=== PATIENT | female | born 1960 | race Two or more races ===

== ENCOUNTER 2016-11-28 10:36 | Emergency (ER) | payer MEDICAID ==
[~2016-11-28] VITALS: Ht 154.9 cm; Wt 77.1 kg
[2016-11-28 12:01] LABS: Basophils # (auto) 0 uL; Basophils % (auto) 0.5 % (0.0-2.0); Eosinophils # (auto) 0.1 uL; Eosinophils % (auto) 0.7 % (0.0-7.0); Hematocrit 42.5 % (36.0-46.0); Lymphocytes # (auto) 2.1 uL; Lymphocytes % (auto) 24.8 % (10.0-50.0); Mean Corpuscular Hgb Conc. 32.9 g/dL (32.0-36.0); Mean Platelet Volume 8.3 fL (7.4-10.4); Monocytes # (auto) 0.5 uL; Monocytes % (auto) 6.1 % (0.0-12.0); Neutrophils # (auto) 5.7 uL; Neutrophils % (auto) 67.9 % (37.0-80.0); Platelet Count (auto) 341 10^3/uL (140-450); Red Cell Distribution Width 12.9 % (11.6-16.0); White Blood Cell 8.4 10^3/uL (4.4-10.8)
[2016-11-28 12:24] LABS: Urine Bilirubin Negative (Negative); Urine Blood TRACE /uL (Negative); Urine Color Yellow (Yellow); Urine Glucose Normal (Normal); Urine Ketone Negative (Negative); Urine Mucus FEW (None Seen); Urine Nitrite POSITIVE (Negative); Urine RBC 2 /hpf (0 - 4); Urine Squamous Epithelial Cell FEW /hpf (<5); Urine Urobilinogen Normal (Negative); Urine pH 5.5 (5.0-8.0)
[2016-11-28 13:12] LABS: Albumin 4.1 g/dL (3.4-5.0); Alkaline Phosphatase 122 U/L (45-117); Anion Gap 10 (5-15); Aspartate Aminotransferase 18 U/L (15-37); BUN/Creatinine Ratio 22.4; Bilirubin, Total 0.8 mg/dL (0.2-1.0); Blood Urea Nitrogen 15 mg/dL (7-18); Calcium 8.7 mg/dL (8.5-10.1); Carbon Dioxide 28 mmol/L (21-32); Chloride 106 mmol/L (98-107); GFR African American 117 mL/min; GFR Non-African American 96 mL/min; Glucose 105 mg/dL (74-106); Magnesium 2.5 mg/dL (1.6-2.6); Potassium 3.9 mmol/L (3.5-5.1); Sodium 144 mmol/L (136-145); Total Protein 8.3 g/dL (6.4-8.2)
[2016-11-28 15:58] VITALS: BP 203/98
== END 2016-11-28 17:01 | disposition home or self-care (01) ==
LOC: ER 10:36
DX: M54.16 Radiculopathy, lumbar region (principal); N39.0 Urinary tract infection, site not specified; I10 Essential (primary) hypertension; M19.90 Unspecified osteoarthritis, unspecified site; M54.9 Dorsalgia, unspecified; M89.29 Other disorders of bone development and growth, multiple sites
CPT/HCPCS: 36415; 80053; 81001; 83735; 84484; 85025; 93005

== ENCOUNTER 2017-10-13 09:42 | Emergency (ER) | payer MEDICAID ==
[~2017-10-13] VITALS: Ht 154.9 cm; Wt 76.2 kg
[2017-10-13 13:13] VITALS: BP 154/70
== END 2017-10-13 13:17 | disposition home or self-care (01) ==
LOC: ER 09:42
DX: J40 Bronchitis, not specified as acute or chronic (principal); G89.29 Other chronic pain; M25.559 Pain in unspecified hip; I10 Essential (primary) hypertension
CPT/HCPCS: 71045

== ENCOUNTER 2017-12-07 15:45 | Emergency (ER) | payer MEDICAID ==
[~2017-12-07] VITALS: Ht 154.9 cm; Wt 72.6 kg
[2017-12-07 15:53] VITALS: BP 153/99
[2017-12-07] MEDS ORDERED: KETOROLAC TROMETH 60MG/2ML VIAL IM ONE (17:30)
== END 2017-12-07 18:00 | disposition home or self-care (01) ==
LOC: ER 15:50
DX: M54.5 Low back pain (principal); G89.29 Other chronic pain; I10 Essential (primary) hypertension; Z76.0 Encounter for issue of repeat prescription
CPT/HCPCS: 96372; 99283; J1885

== ENCOUNTER 2018-02-03 08:33 | Emergency (ER) | payer MEDICAID, OTHER ==
[~2018-02-03] VITALS: Ht 154.9 cm; Wt 72.6 kg
[2018-02-03 08:38] VITALS: BP 189/75
[2018-02-03] MEDS ORDERED: traMADol HCL 50 MG TAB PO ONE (09:15)
[2018-02-03] MEDS ORDERED: KETOROLAC TROMETH 60MG/2ML VIAL IM ONE (09:15)
== END 2018-02-03 09:30 | disposition home or self-care (01) ==
LOC: ER 08:33
DX: M25.551 Pain in right hip (principal); M19.90 Unspecified osteoarthritis, unspecified site; I10 Essential (primary) hypertension
CPT/HCPCS: 96372; 99283; J1885

== ENCOUNTER 2018-06-09 08:57 | Emergency (ER) | payer MEDICAID, OTHER ==
[~2018-06-09] VITALS: Ht 154.9 cm; Wt 77.1 kg
[2018-06-09 09:12] VITALS: BP 195/96
[2018-06-09] MEDS ORDERED: methylPREDNISolone SOD SUCC 125 MG/2 ML VL IM ONE (12:30)
[2018-06-09] MEDS ORDERED: KETOROLAC TROMETH 60MG/2ML VIAL IM ONE (12:30)
== END 2018-06-09 12:27 | disposition home or self-care (01) ==
LOC: ER 08:57
DX: M25.551 Pain in right hip (principal); I10 Essential (primary) hypertension; M19.90 Unspecified osteoarthritis, unspecified site; Z76.0 Encounter for issue of repeat prescription

== ENCOUNTER 2020-07-08 08:54 | Emergency (ER) | payer MEDICAID ==
[~2020-07-08] VITALS: Ht 154.9 cm; Wt 77.1 kg
[2020-07-08 08:59] VITALS: BP 167/95
[2020-07-08] MEDS ORDERED: KETOROLAC TROMETH 60MG/2ML VIAL IM ONE (09:30)
== END 2020-07-08 10:13 | disposition home or self-care (01) ==
LOC: ER 08:54
DX: M54.41 Lumbago with sciatica, right side (principal); I10 Essential (primary) hypertension
CPT/HCPCS: 96372; 99283; J1885